=== PATIENT | female | born 1945 | race Caucasian/White ===

== ENCOUNTER → 2023-05-22 | Outpatient (CLI) | payer MEDICARE ==
[2023-05-22 12:04] LABS: INR 0.9 (<1.2); Partial Thromboplastin Time 24.6 sec (22.0-30.0); Prothrombin Time 9.8 sec (9.0-12.0)
[2023-05-22 16:24] LABS: Appearance,Urine Clear (Clear); Bilirubin,Urine Negative (Negative); Blood,Urine Negative (Negative); Color,Urine Yellow (Yellow); Ketones,Urine Negative (Negative); Nitrite,Urine Negative (Negative); PH, Urine 5.5; Specific Gravity,Urine 1.011 (1.001-1.030); Urobilinogen,Urine 0.2 E.U./DL
[2023-05-22 16:33] LABS: ALT 44 U/L (8-44); AST 30 U/L (13-35); Albumin 4.4 d/dL (3.8-4.9); Albumin/Globulin Ratio 2.32 Ratio (1.60-3.17); Alkaline Phosphatase 116 U/L (41-126); BUN/Creat Ratio 27.78 Ratio (12.00-20.00); Calcium 9.9 mg/dL (8.7-10.3); Carbon Dioxide 29.1 mmol/L (21.6-31.8); Chloride 102 mmol/L (96-109); Globulin 1.9 d/dL (1.6-3.3); Glucose 103 mg/dL (70-110); Potassium 4.3 mmol/L (3.5-5.5); Sodium 141 mmol/L (135-145); Total Bilirubin 0.5 mg/dL (0.3-1.2); Total Protein 6.3 d/dL (6.2-8.2)
[2023-05-22 16:50] LABS: HCT 38.9 % (37.2-46.3); HGB 12.8 d/dL (12.0-15.0); MCH 33.5 pg (27.0-32.0); MCHC 32.9 d/dL (32.0-37.0); MCV 101.8 FL (80.0-97.0); Mean Platelet Volume 10.3 FL (9.5-12.2); NRBC Per 100 WBC 0 X 10*3/uL (0.00-0.01); Platelet Count 326 X 10*3/uL (140-440); RBC 3.82 X 10*6/uL (4.10-5.20); RDW 12.8 % (11.5-14.5); WBC 9.08 X 10*3/uL (4.50-10.00)
== END | disposition home or self-care (01) ==
LOC: LABWHC1 11:10
PROVIDERS: ATTEND Orthopaedic Surgery
DX: Z01.812 Encounter for preprocedural laboratory examination (principal); M16.12 Unilateral primary osteoarthritis, left hip; I45.10 Unspecified right bundle-branch block; I21.29 ST elevation (STEMI) myocardial infarction involving other sites; R94.31 Abnormal electrocardiogram [ECG] [EKG]
CPT/HCPCS: 36415; 80053; 81003; 85027; 85610; 85730; 87070; 93005

== ENCOUNTER 2023-06-04 13:22 | Day surgery (SDC) | payer MEDICARE ==
[2023-06-03 11:46] VITALS: BMI 39.2
[~2023-06-04 13:22] MED LIST: ACETAMINOPHEN TAB 500 MG TAB PO PRN; HYDROmorphone 0.5 MG/0.5 ML SYRINGE IVP PRN; KETOROLAC 15 MG/ML 1 ML VIAL IVP PRN; LIDOCAINE 1% (10MG/ML) FOR IV START INTRADERMA PRN; ROPIVACAINE/EPI/CLONIDINE/KET 50 ML SYRINGE MISCELLANE PRN; TRANEXAMIC 1,000 MG/100ML-NACL 1,000 MG in SALINE 1 100ML.BAG IV PRN; TRANEXAMIC 1,000 MG/100ML-NACL 1,000 MG in SALINE 1 100ML.BAG IVPB PRN; oxyCODONE ER 10 MG TAB.ER.12H PO PRN
[2023-06-04] MEDS: DEXAMETHASONE SOD PHOSPHATE 10 MG/ML 1 ML VIAL IV PRN ×2 (14:10→14:13)
[2023-06-04] MEDS: FAMOTIDINE 20 MG/2 ML VIAL IVP PRN ×2 (14:11→14:13)
[2023-06-04] MEDS: DOCUSATE 100 MG CAP PO PRN ×2 (14:12→14:13)
[2023-06-04] MEDS: ONDANSETRON 4 MG/2 ML VIAL IVP PRN ×2 (14:13→14:14)
[2023-06-04] MEDS: LACTATED RINGERS 1,000 ML IV SCH ×2 (14:13→21:04)
[2023-06-04] MEDS ORDERED: MIDAZOLAM 2 MG/2 ML VIAL IVP ONE (14:21)
[2023-06-04] MEDS ORDERED: fentaNYL (PF) 50 MCG/1 ML VIAL IVP ONE (14:22)
[2023-06-04 14:31] VITALS: RESP 16
[2023-06-04] MEDS ORDERED: LIDOCAINE 2% INJ 20 MG/ML (2 ML VIAL) ONE (16:16)
[2023-06-04] MEDS ORDERED: PROPOFOL 10 MG/ML 20 ML VIAL IV ONE (16:16)
[2023-06-04] MEDS ORDERED: TRANEXAMIC 1,000 MG/100ML-NACL PREMIX BAG ONE (16:16)
[2023-06-04] MEDS ORDERED: GLYCOPYRROLATE 0.2 MG/ML 2 ML VIAL ONE (16:16)
[2023-06-04] MEDS ORDERED: ROCURONIUM 10 MG/ML (5 ML VIAL) IV ONE (16:16)
[2023-06-04] MEDS ORDERED: HYDROmorphone (PF) 1 MG/ML ONE (16:16)
[2023-06-04] MEDS ORDERED: SODIUM CHLORIDE 0.9% (PF) 10 ML VIAL ONE (16:16)
[2023-06-04] MEDS ORDERED: PROMETHAZINE 25 MG TAB ONE (16:16)
[2023-06-04] MEDS ORDERED: SUCCINYLCHOLINE CHLORIDE 200 MG/10 ML VIAL IV ONE (16:16)
[2023-06-04] MEDS ORDERED: fentaNYL (PF) 50 MCG/ML 2 ML AMP ONE (16:16)
[2023-06-04] MEDS ORDERED: ROPIVACAINE 5 MG/ML 30 ML VIAL ONE (16:16)
[2023-06-04] MEDS ORDERED: NEOSTIGMINE 1 MG/ML 10 ML VIAL ONE (16:16)
--- NOTE | 2023-06-04 16:25 | P.ANPRN ---
Procedure Note - Anesthesia - Nerve Block Performed Left Tip Time Out Performed: Yes (:) Date of Procedure: 06/04/23 Procedure Start Time: Procedure Stop Time: Location of Patient: PreOp Indication: Acute Post-Operative Pain, Requested by Surgeon (Dr Acevedo) Sedation Type: Sedate with meaningful contact maintained Preparation: Sterile Prep Position: Supine Catheter: None Needle Types: Pajunk Needle Gauge: 21 Ultrasound used to visualize needle placement: Yes Ultrasound used to observe medication spread: Yes Injectate: 0.5% Ropivacaine (see comment for volume) (20cc +5cc PFNormal saline) Blood Aspirated: No Pain Paresthesia on Injection Noted: No Resistance on Injection: Normal Image Stored and Saved: Yes Events: Uneventful and Well Tolerated
[2023-06-04] MEDS ORDERED: LACTATED RINGERS 1,000 ML IV ONE (18:30)
[2023-06-04] MEDS ORDERED: NALOXONE 0.4 MG/ML 1 ML VIAL IV PRN (19:07)
[2023-06-04] MEDS ORDERED: ONDANSETRON 4 MG/2 ML VIAL IVP PRN (19:07)
[2023-06-04] MEDS ORDERED: HYDROcodone/APAP 5-325MG 1 EACH TAB PO PRN (19:07)
[2023-06-04] MEDS ORDERED: HYDROmorphone 0.5 MG/0.5 ML SYRINGE IVP PRN ×3 (19:07)
--- NOTE | 2023-06-04 19:07 | P.OP ---
Date of Procedure: 06/04/23 Preoperative Diagnosis: 1. Severe left hip osteoarthritis 2. Morbid obesity, BMI 40 3. Osteoporosis Postoperative Diagnosis: Same Procedure(s) Performed: Left direct anterior total hip arthroplasty Implants: 1. Nava Trident II Acetabular Cup, Size #50 2. Rebecca Accolade C Size #4 Femoral Stem, Standard Offset 3. Dual Mobility OD 38mm, ID 22.2mm, +0 neck Anesthesia: MICHEL, regional Surgeon: Mike Acevedo Groundskeeping Yardman #1: Veronica Luis Estimated Blood Loss (ml): 350 IV fluids (ml): 1,000 Pathology: none sent Condition: stable Disposition: PACU Indications for Procedure: I had a long discussion with the patient in the office on the potential risks and complications of an elective total hip replacement through a direct anterior approach. Risks discussed include, but are certainly not limited to, risks from anesthesia, superficial infection requiring local wound care or antibiotics, deep sayda-prosthetic joint infection and the treatment required to eradicate infection, intraoperative fracture, postoperative periprosthetic fracture, damage to local blood vessels or nerves particularly the lateral femoral cutaneous nerve, delayed wound healing requiring local wound care or possibly surgical debridement, hip dislocation, leg length discrepancy, soft tissue irritation around the total hip implant such as iliopsoas tendinitis or trochanteric bursitis, wear and osteolysis from the implants, squeaking or audible noises, groin pain, thigh pain, heterotopic ossification, stiffness, aseptic loosening of the implants, dissatisfaction with surgical outcome, need for revision surgery, DVT, PE, swelling of the operative extremity, acute coronary event, stroke, failure to thrive, and possibly loss of life or limb. The patient understands that while these are the most common complications after an elective hip replacement there are certainly other less common complications possible. They were given ample time to ask questions regarding the potential complications of a hip replacement. Following our discussion the patient provided their verbal and written consent to go forward with an elective total hip replacement. Operative Findings: Severe left hip osteoarthritis Description of Procedure: The patient was identified in the preoperative holding area and the correct hip was marked with my initials. I reviewed the procedure and consent with the patient. All of their questions were answered. The patient was then brought back into the operating room by anesthesia. While on the [facility] anesthesia was administered by the anesthesia team. Preoperative antibiotics and tranexamic acid were also given. After the patient was under anesthesia I examined their ankles to determine their preoperative leg length discrepancy. The skin over the anterior aspect of the hip was shaved to remove hair over the site of planned incision. Both feet and ankles were padded with webril and boots for the [place] were applied. The patient was then carefully transferred onto the [place] table. A perineal post was immediately placed. The arms were placed on arm holders and were well-padded. Both boots were secured to the spars on the U[place]ling table. The patient was positioned so that the pelvis was centered over the post. Nonsterile drapes were applied. A timeout was performed identifying the correct patient, operative extremity, and procedure. At this point fluoroscopy was brought in to take preoperative images of the pelvis and operative hip. Using the standing AP pelvis from the office as a template, a comparable image was obtained with fluoroscopy. A metallic bar was used to create a bi-ischial line for use as a reference to leg length adjustments during the procedure. Global offset was also measured on both the operative and nonoperative leg. Fluoroscopy was then brought out and a pre-scrub using a chlorhexidine scrub brush was performed. The operative limb was then prepped and draped in the standard sterile fashion. An anterior longitudinal incision was made lateral and distal to the ASIS. The skin and subcutaneous tissues were incised sharply. The underlying tensor fascia was identified and incised in its midportion. The fascia was dissected free from the underlying muscle and the muscle belly was retracted. A blunt tipped cobra retractor was placed over the superior neck under the muscle fibers of the gluteus minimus. The deep enveloping fascia of the tensor was incised. The anterior leash of vessels were then identified and cauterized. The fascia between the rectus and the capsule was then incised and the pre-capsular fat was excised. A second Cobra was placed inferior to the neck. The interval between the rectus and iliocapsularis and the hip capsule was developed and a retractor was placed carefully over the anterior rim of the acetabulum. A T-shaped anterior capsulotomy was performed. The superior capsular leaflet was left in place in the inferior capsular flap was excised. The Cobra retractors were placed intracapsularly. We then made a femoral neck osteotomy according to preoperative and intraoperative templating and confirmed the level of the osteotomy using fluoroscopic imaging. The femoral head was removed, passed off to the back table, and sized. The superior capsular flap was excised. Retractors were placed circumferentially exposing the acetabulum. We then circumferentially debrided the acetabulum free of labrum and osteophytes. The pulvinar was removed to fully visualize the cotyloid fossa. We then sequentially reamed to achieve peripheral fit and excellent bleeding subchondral bone. The socket was thoroughly irrigated. The acetabular component was impacted into the appropriate position using fluoroscopy to guide version, inclination, and depth of insertion taking care to have a comparable image of the AP pelvis to the standing image taken in the office. An excellent press-fit was achieved and final position was confirmed using fluoroscopy. The press fit was augmented with bony cancellus dome screws. The liner was then impacted into the socket. Attention was then turned to the femur. The remnant dorsal lateral capsule was excised. The short external rotators were visible and protected. A bone hook was used to confirm appropriate translation of the trochanter away from the acetabulum. The leg was then extended and adducted and the bone hook was used to elevate the femur for broaching. On inspection of the patient's proximal femur, they appeared to have poor bone quality so I elected to proceed with cemented fixation of the femoral component. A box osteotome and blunt tipped canal sound was then utilized to gain access to the femoral canal. We then sequentially broached the femur in appropriate anteversion until torsional stability was achieved and the implant was felt to have reached the appropriate size to allow trialing. The neck cut was brought flush to the trial broach with a calcar planar. A trial neck and head were then placed onto the broach and the hip was atraumatically reduced under direct visualization. External rotation to 90 was performed to assess stability. Fluoroscopy was brought in. An AP and lateral fluoroscopic image of the proximal femur was obtained to assess position and fill of the trial broach. An AP of the pelvis was then obtained and matched to the preoperative image taken. A bi-ischial bar was then placed and measurements were taken to assess changes in length and offset. The hip was then carefully dislocated, the proximal femur was exposed, and the trial implants were removed. The proximal femur was then prepared for cementing. The canal was thoroughly irrigated with pulsatile lavage to remove blood and marrow contents. A cement restrictor was placed to a depth just distal to the tip of the final implant. Epinephrine-soaked gauze was then packed into the proximal femur. 2 bags of cement were then mixed using a centrifuge and placed into a cement gun. Anesthesia was notified that cementing was about to commence to make sure the patient was appropriately ventilated and hydrated. Once the cement had reached appropriate consistency, the cement gun was used to fill the canal in a retrograde fashion starting at the restrictor. Cement was then pressurized into the canal with a blue tipped service desk associate. The stem was then carefully introduced into the cement taking care to guide the implant into appropriate version. The stem was held in position until the cement had fully set. All extra cement was removed while the cement was hardening. The trunnion was cleansed and the final head was tapped into place to engage the Flores taper. The acetabulum was irrigated and visualized to be free of debris. The hip was carefully reduced. Stability was checked clinically with external rotation to 90 and there was no evidence of instability. Final fluoroscopic images were taken. The wound was then thoroughly irrigated and soaked with a dilute Betadine rinse for 3 minutes. 3 L of sterile saline was irrigated through the wound using pulsatile lavage. Local anesthetic cocktail was injected into the soft tissues around the surgical field. A deep drain was placed. The wound was then closed in layers. A sterile dressing was placed over the surgical incision and drain site. The drapes were taken down and the patient was carefully transferred off of the Uehling table. Following removal of the boots the leg lengths felt acceptable. The patient was then taken to recovery room having tolerated the procedure well. Veronica Luis PA-C was required as a skilled payroll assistant for patient positioning, surgical exposure, retraction, placement of implants, and closure of the surgical wound. PLAN: The patient can weight-bear as tolerated on the operative extremity. 2 doses of postoperative antibiotics. DVT prophylaxis with aspirin 81 mg twice a day based on preoperative risk stratification. Physical therapy for gait tra ining. Discontinue drain postoperative day #1 if output is less than 100 mL per shift.
--- NOTE | 2023-06-04 20:11 | XR ---
Fluoroscopy INDICATION: Pain FINDINGS: Fluoroscopy time: 31 seconds. Total dose area product (DAP) in uGy*m?, mGy*cm? (or similar): 1.1906 Images obtained: 7. IMPRESSION: 1. Documentation of fluoroscopy.
[2023-06-04] MEDS: ASPIRIN 81 MG PO SCH (20:58)
[2023-06-04] MEDS: HYDROcodone/APAP 5-325MG 1 EACH TAB PO PRN (20:58)
[2023-06-05] MEDS: HYDROcodone/APAP 5-325MG 1 EACH TAB PO PRN ×2 (05:33→12:22)
[2023-06-05] MEDS: LACTATED RINGERS 1,000 ML IV SCH ×2 (08:42→09:20)
[2023-06-05] MEDS: ASPIRIN 81 MG PO SCH (08:51)
--- NOTE | 2023-06-05 08:54 | FL ---
Intraoperative/procedural fluoroscopic services were provided. Total fluoroscopy time is 31.1 seconds with a total of 6 submitted images to PACS. Please see the operative/procedural note for further det ails. DAP: 1.1906 Gycm2
[2023-06-05 11:00] LABS: Basophils # (A) 0.02 X 10*3/uL (0.00-0.10); Basophils % (A) 0.1 %; Eosinophils # (A) 0 X 10*3/uL (0.04-0.35); Eosinophils % (A) 0 %; HCT 30.1 % (37.2-46.3); HGB 10.1 d/dL (12.0-15.0); Lymphocytes % (A) 6.3 %; MCH 33.7 pg (27.0-32.0); MCHC 33.6 d/dL (32.0-37.0); MCV 100.3 FL (80.0-97.0); Mean Platelet Volume 10.3 FL (9.5-12.2); Monocytes # (A) 0.86 X 10*3/uL (0.20-1.00); NRBC Per 100 WBC 0 X 10*3/uL (0.00-0.01); Neutrophils % (A) 87.1 %; Platelet Count 297 X 10*3/uL (140-440); RDW 13.2 % (11.5-14.5); WBC 14.25 X 10*3/uL (4.50-10.00)
--- NOTE | 2023-06-05 12:49 | P.DS ---
Providers Expected date of discharge: 06/05/23 Attending physician: Mike Acevedo Consults: 06/04/23 19:07 Consult Physician Routine Consulting Provider: Alexandra Herrera Consult Reason/Comments: medical management Do you want consulting provider notified?: Yes Primary care physician: Robert Baptiste [facility] Course: This is an 78-year-old female who has been followed in our office by Dr. Acevedo for continued complaints of left hip pain due to left hip osteoarthritis. Treatment options were discussed, and patient elected to undergo a left direct anterior total hip arthroplasty. Patient was seen pre-operatively by Dr. Baptiste, Dr. Mancia and cleared for surgery. Patient underwent a left direct anterior total hip arthroplasty on 06/04/[address] Acevedo. The procedure was performed without complication or sequelae. The patient is doing fairly well postoperatively. Vital signs and labs are stable on postoperative day #1. Patient was examined bedside this morning with Dr. Acevedo. Patient states she is overall doing well and the pain in the hip is well-controlled. She has been ambulating with a walker with minimal assistance. Patient is comfortable being discharged home today. Physical therapy has worked with the patient and cleared her for discharge home with home PT. Patient has no new complaints this morning. On examination, the patient is sitting up in bed in no apparent distress. She is alert and orientated 3. On inspection of the left hip, there is a Prevena wound vac in place that has a good seal at this time. Hemovac drain is removed bedside during examination. Motor and sensory function is intact of the left lower extremity. Femoral nerve function intact. The dorsalis pedis pulse is easily palpable, the left lower extremity is warm and well perfused with brisk capillary refill. Calf is soft and non-tender to palpation. Patient is discharged home with home health care today in good condition, pending medical clearance. Patient will follow-up with Dr. Acevedo in the office in 2 weeks at [facility]. Please see med rec for accurate list of discharge medication. Plan - Discharge Summary Discharge Rx Participant: No New Discharge Prescriptions: New Docusate [Colace] 100 mg PO BID #60 capsule HYDROcodone/APAP 5-325MG [[place] 5-325] 1 - 2 tab PO Q6HR PRN 7 Days #32 tab PRN Reason: Pain Omeprazole 40 mg PO DAILY 30 Days #30 cap Aspirin 81 mg PO BID 30 Days #60 tab Diclofenac Sodium [Voltaren] 75 mg PO BID 30 Days #60 tab No Action Metoprolol Succinate (ER) [Toprol Xl] 25 mg PO HS Losartan/Hydrochlorothiazide [Losartan-Hctz 100-25 mg Tab] 1 tab PO DAILY traMADol HCL 50 mg PO Q6H PRN PRN Reason: Pain Atkinson Supplement 1 dose PO DAILY Calcitrate With Vitamin D 1 dose PO DAILY Vit C/E/Zn/Coppr/Lutein/Zeaxan [Preservision Areds 2 Softgel] 1 each PO BID Diclofenac Sodium [Voltaren] 75 mg PO DIRECTED PRN PRN Reason: Pain Discharge Medication List Calcitrate With Vitamin D 1 dose PO DAILY 06/03/23 [History] Atkinson Supplement 1 dose PO DAILY 06/03/23 [History] Diclofenac Sodium [Voltaren] 75 mg PO DIRECTED PRN 06/03/23 [History] Losartan/Hydrochlorothiazide [Losartan-Hctz 100-25 mg Tab] 1 tab PO DAILY 06/03/23 [History] Metoprolol Succinate (ER) [Toprol Xl] 25 mg PO HS 06/03/23 [History] Vit C/E/Zn/Coppr/Lutein/Zeaxan [Preservision Areds 2 Softgel] 1 each PO BID 06/03/23 [History] traMADol HCL 50 mg PO Q6H PRN 06/03/23 [History] Aspirin 81 mg PO BID 30 Days #60 tab 06/05/23 [Rx] Diclofenac Sodium [Voltaren] 75 mg PO BID 30 Days #60 tab 06/05/23 [Rx] Docusate [Colace] 100 mg PO BID #60 capsule 06/05/23 [Rx] HYDROcodone/APAP 5-325MG [[place] 5-325] 1 - 2 tab PO Q6HR PRN 7 Days #32 tab 06/05/23 [Rx] Omeprazole 40 mg PO DAILY 30 Days #30 cap 06/05/23 [Rx] Follow up Appointment(s)/Referral(s): [facility] [[facility]] - 1-2 Days ([facility] will call you to schedule your in home physical therapy visits. ) Mike Acevedo MD [Medical Doctor] - 2 Weeks Patient Instructions/Handouts: Total Hip Replacement (DC) Activity/Diet/Wound Care/Special Instructions: Weight bear to tolerance on operative extremity with a walker. Keep Prevena wound vac in place until follow-up appointment in the office. Call the office with any questions or concerns regarding wound vac. Take pain medication as prescribed. Take aspirin 81mg twice a day x 4 weeks for blood clot prevention. Follow-up in the office in two weeks at [facility]. Call the office with any questions or concerns, Discharge Disposition: HOME WITH HOME HEALTH SERVICES
[2023-06-05 15:47] VITALS: BP 131/70; PULSE 99; TEMP 97.7
== END 2023-06-05 14:30 | disposition home health service (06) ==
LOC: OR 13:22 → 4SSUR 18:49 → OR 06-05 14:30
PROVIDERS: ATTEND Orthopaedic Surgery
DX: M16.12 Unilateral primary osteoarthritis, left hip (principal); E66.01 Morbid (severe) obesity due to excess calories; M81.0 Age-related osteoporosis without current pathological fracture; G89.18 Other acute postprocedural pain; Z68.41 Body mass index [BMI] 40.0-44.9, adult; Z79.899 Other long term (current) drug therapy
CPT/HCPCS: 97161; 64447; 86900; 86901; 85025; 86850; 73501; 27130; C1776; C1713; J2250; J1100; J0690 ×2; J2405; J3490; J1885; J3010

== ENCOUNTER → 2023-06-26 | Outpatient (CLI) | payer MEDICARE ==
--- NOTE | 2023-06-27 09:56 | US ---
EXAMINATION TYPE: US venous doppler duplex LE LT DATE OF EXAM: 06/26/2023 1:02 PM COMPARISON: NONE CLINICAL INDICATION: Female, 78 years old with history of I80.9 PHLEBITIS; SIDE PERFORMED: Left TECHNIQUE: The lower extremity deep venous system is examined utilizing real time linear array sonog haroldo with graded compression, doppler sonography and color-flow sonography. VESSELS IMAGED: Common Femoral Vein Deep Femoral Vein Greater Saphenous Vein * Femoral Vein Popliteal Vein Small Saphenous Vein * Proximal Calf Veins (* superficial vessels) Left Leg: Negative for DVT IMPRESSION: Grayscale, color doppler, spectral doppler imaging performed of the deep veins of the lo wer extremities. There is normal flow, compressibility, vascular waveforms.
== END | disposition home or self-care (01) ==
LOC: RADUSWWP 11:49
PROVIDERS: ATTEND Orthopaedic Surgery
DX: Z47.1 Aftercare following joint replacement surgery (principal); I80.9 Phlebitis and thrombophlebitis of unspecified site; M25.552 Pain in left hip; Z96.642 Presence of left artificial hip joint